=== PATIENT | female | born 1995 | race Caucasian/White ===

== ENCOUNTER 2017-10-11 13:17 | Emergency (ER) | payer MEDICAID ==
[~2017-10-11] VITALS: Ht 157.5 cm; Wt 91.6 kg
[2017-10-11 13:21] VITALS: Ht 157.5 cm; Wt 91.6 kg
[2017-10-11 19:22] VITALS: BP 130/74
== END 2017-10-11 19:22 | disposition home or self-care (01) ==
LOC: ED 13:17
DX: L05.01 Pilonidal cyst with abscess (principal); J06.9 Acute upper respiratory infection, unspecified
CPT/HCPCS: 90715; J2001; Q0092

== ENCOUNTER 2017-10-14 14:59 | Emergency (ER) | payer MEDICAID ==
[~2017-10-14] VITALS: Ht 157.5 cm; Wt 93.0 kg
[2017-10-14 15:14] VITALS: BP 117/62; Ht 157.5 cm; Wt 93.0 kg
== END 2017-10-14 16:50 | disposition home or self-care (01) ==
LOC: ED 14:59
DX: Z48.01 Encounter for change or removal of surgical wound dressing (principal)